=== PATIENT | male | born 2000 | race Two or more races ===

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

== ENCOUNTER 2018-01-06 13:17 | Outpatient (CLI) | payer OTHER ==
[2018-01-06] MEDS ORDERED: diphenhydrAMINE 25 MG CAP PO ONE (13:45)
[2018-01-06] MEDS ORDERED: ACETAMINOPHEN 500 MG TAB PO ONE (13:45)
== END 2018-01-06 20:17 | disposition home or self-care (01) ==
LOC: FOBOP 13:17
PROVIDERS: ATTEND Internal Medicine Hematology & Oncology
PROC: 30233N1 Transfusion of Nonautologous Red Blood Cells into Peripheral Vein, Percutaneous Approach (ICD-10-PCS; principal; 2018-01-06)
DX: C91.00 Acute lymphoblastic leukemia not having achieved remission (principal)
CPT/HCPCS: 36430; P9016; P9040; J1642

== ENCOUNTER 2018-01-07 15:47 | Inpatient (IN) | payer OTHER ==
[2018-01-07] MEDS ORDERED: oxyCODONE IR 5 MG TAB PO PRN (16:48)
[2018-01-07] MEDS ORDERED: LACTULOSE 20 GM/30 ML UDCUP PO PRN (16:52)
[2018-01-07] MEDS ORDERED: MAGNESIUM HYDROXIDE 30 ML UDCUP PO PRN (16:52)
[2018-01-07] MEDS ORDERED: POLYETHYLENE GLYCOL 3350 17 GM PKT PO PRN (16:52)
[2018-01-07] MEDS ORDERED: BISACODYL 10 MG SUPP PR PRN (16:52)
--- NOTE | 2018-01-07 17:29 | GHP ---
[f rep st] HISTORY AND PHYSICAL DATE OF ADMISSION: 01/07/2018 CHIEF COMPLAINT: Neutropenic fever, ALL. PRIMARY ONCOLOGIST: Dr. Brock. 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 He was seen at [facility] today by Dr. Lentz and is being admitted for pancytopenia and neutropenic fever. He was treated with CALGB 32993 protocol. The oral chemo was stopped on Thursday, and his last dose of IV chemotherapy was December 08. He had labs drawn 2017, with WBC 0.51, hemoglobin 5.9, hematocrit 71, and platelets 17. He was transfused 2 units of blood yesterday. He says he is feeling more perky and not as tired. He has sores on the inner aspect of his lip and mouth that are painful with swallowing or drinking liquids. He has noticed sharp rectal pain with bowel movements, the past couple days. Has been eating less to avoid having bowel movements because of the pain. He has mild nausea every morning. This is resolved at night. He has had hot flashes/sweats for the past week. Denies cough, chest pain, or shortness of breath. No dysuria or urinary frequency or urgency. He had a port placed by Dr. Burrell on 12/28/2017. Has a history of C diff in November 2017, but denies diarrhea currently. REVIEW OF SYSTEMS: I completed a 10-point review of systems, negative except as noted in the HPI. PAST MEDICAL HISTORY: 1. 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 Chemo was placed on hold this week. 2. Pancytopenia. 3. History of C diff colitis, November 2017. 4. Allergic rhinitis. 5. Asthma. 6. Depression. PAST SURGICAL HISTORY: Port placement. SOCIAL HISTORY: Lives in [place] with his mom and dad. Occasional alcohol. No tobacco or illicits. FAMILY HISTORY: Paternal grandmother with diabetes. Maternal grandmother with breast cancer and colon cancer. PHYSICAL EXAMINATION: VITAL SIGNS: Temperature 37.4 blood pressure 134/78, heart rate 115, respirations 16, 97% on room air. GENERAL: Well-appearing, pale, but no acute distress. HEENT: PERRLA, EOMI. Dry mucous membranes. Has oral ulcerations on lower lip and inner aspect of his mouth. CV: Tachy, but regular. No murmurs, gallops, or rubs. LUNGS: Clear. No crackles or wheezing. ABDOMEN: Soft, nontender, nondistended. Has striae of bilateral flanks. : No suprapubic or CVA tenderness. RECTUM: Without erythema or open ulceration. Did not perform a full rectal exam, given neutropenia. NEURO : 2 through 12 intact. PSYCH: Alert and oriented x3, very pleasant. SKIN: Warm, dry, has striae on upper extremities. LABS: WBC is 0.35, hemoglobin 7.9, hematocrit 22, platelets 17 (17 on 01/04). Absolute neutrophil 0.05. Sodium 144, potassium 4.0, chloride 104, carbon dioxide 23, anion gap 18, creatinine 0.6, glucose is 100. Total bilirubin is 5.2, conjugated 1.2, unconjugated 4. LFTs within normal. ASSESSMENT AND PLAN: 1. Neutropenic fever: Differential is broad, given significant neutropenia. Had port placed earlier this month. Blood cultures drawn in clinic. Has complained of rectal pain, especially with bowel movements. CT pending to eval for rectal abscess. Start broad abx. Infectious Disease to evaluate in the morning. 2. Acute rectal pain: We will choose oral agents given do not want to do suppositories in the setting of neutropenia. 3. B-cell acute lymphoblastic leukemia: Followed by Dr. Brock. Chemotherapy is on hold with pancytopenia 4. Depression. He is not on medications. 5. Pancytopenia: transfused 2 units RBCs yesterday. Platelets remain at 17; transfuse if <10 or bleeding 6. Mucositis: magic mouthwash 7. Hyperbilirubinemia: likely from chemo. Repeat in morning 8. Asthma: resume inhaler 9. Diet: Regular. 10. Deep venous thrombosis prophylaxis: Is ambulating. No Lovenox with thrombocytopenia. DISPOSITION: Patient warrants inpatient admission given acute neutropenic fever , rectal pain, warranting IV antibiotics and Infectious Disease consultation. /[id number]/MODL MTDD
--- NOTE | 2018-01-07 17:34 | GCON ---
[f rep st] CONSULTATION HISTORY OF PRESENT ILLNESS: The patient is a very pleasant 17-year-old gentleman who was diagnosed with a B-cell ALL, Willow chromosome negative , in April of 2017. He presented with widespread osseous metastasis and diagnosis was made on a bone marrow biopsy. He was started on CALGB protocol and went into complete remission that was MRD negative. He has completed cycles 1, 2, and 3 and is currently on cycle 4, which is the delayed intensification therapy. He has recently had significant pancytopenia and as of 3 days ago, all of his chemotherapy drugs were stopped. He presents today with a 3-4 day history of rectal pain, feeling poorly, and a temperature of 99.7. Because of significant pancytopenia, he is admitted for IV antibiotics and monitoring. In addition to the rectal pain, he also complains of significant stomatitis. He has generally been healthy except for exercise- induced asthma. There is a history of breast cancer and colon cancer in a maternal great-grandmother. He is accompanied by his parents. REVIEW OF SYSTEMS: Otherwise negative except as discussed above. PHYSICAL EXAMINATION: VITAL SIGNS: Today, blood pressure is 124/84. Pulse is 128. O2 saturation is 98%. Temperature is 99.7. He could be slightly icteric. Chemistry panel is pending. MOUTH: Shows evidence of stomatitis, particularly on the tip of his tongue. LYMPH: I detect no cervical, supraclavicular, or axillary adenopathy. LUNGS: Clear to auscultation and percussion. CARDIAC: S1, S2 without murmurs, clicks, or added sounds. ABDOMEN : Shows normal bowel sounds and is nontender. EXTREMITIES: Show no edema. NEUROLOGIC: Nonfocal. PERIRECTAL: Exam was done by Alpa Solano, nurse practitioner, and she reports that he is extremely tender in the rectal area, but no fluctuance is noted. LABORATORY DATA: His current white count is 0.35 with an ANC of 0.05, hemoglobin 7.9, hematocrit 22.2, and platelets are 17,000. IMPRESSION: Patient with an acute lymphocytic leukemia on course for delayed intensification chemotherapy. He has significant pancytopenia. 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 I am concerned he probably has an anal fissure, which of course should be treated conservatively, but given the extreme cytopenia and fever, I think it would probably be best to admit him for coverage. I should note that he had a recent bout of Clostridium difficile enterocolitis, and I would probably place him on p.o. vancomycin prophylactically. I should also note that he had a recent PICC line removed and a port placed by Dr. Burrell. It looks fine on examination today, but we will draw blood cultures, both peripherally and from his port. I think early infectious disease consultation may be indicated. /[id number]/MODL MTDD
[2018-01-07] MEDS: MBX SOLN 30 ML BOTTLE PO PRN ×2 (17:48→20:25)
[2018-01-07] MEDS: CEFEPIME HCL 2 GM in STERILE WATER INJ 12.5 ML IV SCH ×2 (17:49→23:58)
[2018-01-07] MEDS: NS 1,000 ML IV SCH (17:49)
[2018-01-07] MEDS: metroNIDAZOLE 500 MG TAB PO SCH ×2 (17:49→23:58)
[2018-01-07] MEDS ORDERED: IOPAMIDOL (ISOVUE-300) 100 ML BTL ONE (19:28)
[2018-01-07] MEDS: VANCOMYCIN 1.25 GM in NS 250 ML IV SCH (20:24)
[2018-01-07] MEDS: SENNOSIDES/DOCUSATE SODIUM TAB PO SCH (21:20)
[2018-01-07] MEDS: ACETAMINOPHEN 325 MG TAB PO PRN (22:10)
[2018-01-07] MEDS ORDERED: PROMETHAZINE HCL 25 MG/ML INJ IVP PRN (22:49)
[2018-01-08] MEDS: metroNIDAZOLE 500 MG TAB PO SCH ×2 (03:09→13:50)
[2018-01-08] MEDS: CEFEPIME HCL 2 GM in STERILE WATER INJ 12.5 ML IV SCH ×2 (04:40→13:51)
[2018-01-08] MEDS: NS 1,000 ML IV SCH ×2 (04:40→21:50)
[2018-01-08 06:00] LABS: PLATELET COUNT 12 10^3/uL (150-400)
[2018-01-08] MEDS: VANCOMYCIN 1.25 GM in NS 250 ML IV SCH (06:27)
[2018-01-08] MEDS ORDERED: LORazepam 1 MG TAB PO PRN (08:50)
[2018-01-08] MEDS ORDERED: NON-FORMULARY NEW DRUG (Omeprazole [Omeprazole] 20 MG) PO SCH (09:00)
[2018-01-08] MEDS ORDERED: Herbals/Supplements -Info Only PO SCH (09:00)
[2018-01-08] MEDS: SENNOSIDES/DOCUSATE SODIUM TAB PO SCH ×2 (10:03→21:29)
[2018-01-08] MEDS: PANTOPRAZOLE SODIUM 40 MG TAB PO SCH (10:04)
[2018-01-08] MEDS: ONDANSETRON 4 MG/2 ML VIAL IVP PRN (10:45)
--- NOTE | 2018-01-08 11:03 | PDMN ---
Medical Necessity Medical necessity: Patient meets inpatient criteria per physician note and [facility] Hematology [facility] (neutropenic fever/pancytopenia after chemotherapy for B-cell ALL with widespread osseous mets; chemo on hold; received 2 units PRBC's prior to admission; ongoing tachycardia to 110's after initial treatment/rehydration; new rectal pain/poss anal fissure; anticipated LOS > 2 midnights for ongoing IV antibiotics, ID consult, possible additional transfusions.)
--- NOTE | 2018-01-08 11:47 | SOAPPROG ---
SOAP Progress Note Assessment/Plan: Assessment: 1. ALL 2. Pancytopenia 3. Fever 4.Diarrhea, could have some component neutropenic colitis based on ct scan 5. Anal pain Plan:Continue antibiotics, ID consult pending, Txn PRBC's today 01/08/18 11:43 01/08/18 11:48 Subjective: feels sweaty, some nausea, one episode emesis Objective: Vital Signs Temp Pulse Resp BP Pulse Ox 98.4 F 115 H 17 132/84 H 98 01/08/18 11:28 01/08/18 09:57 01/08/18 09:57 01/08/18 09:57 01/08/18 09:57 Laboratory Results 01/08/18 05:40 01/08/18 08:00 01/07/18 01/08/18 01/09/18 05:59 05:59 05:59 Intake Total [address] shows some thickening caecum and sigmoid colon Physical Exam - Physical Exam General Appearance: mild distress Respiratory: lungs clear, normal breath sounds Cardiac/Chest: regular rate, rhythm Abdomen: normal bowel sounds, non-tender ICD10 Worksheet Patient Problems: Problems Problem Status Onset Anemia Acute Hypotension Acute Thrombocytopenia Acute
[2018-01-08] MEDS ORDERED: LIDOCAINE 2% JELLY 5 ML TUBE TP PRN (11:51)
--- NOTE | 2018-01-08 12:06 | ASMTCMCOM ---
CM Note CM Note Notes: Pt. is a 17-year-old man admitted for a fever and rectal pain. Pt. with B cell ALL diagnosed in April,. Hx. of Cdiff, pancytopenia, asthma, and depression. Pt's oncologist is Dr. Allen Brock. Dr. Lentz involved for admission to [facility]. ID is consulted. Pt. currently on IV antibiotics. Need to assess for home IVs going forward. No PT or OT ordered. Anticipate independent d/c to his parents, Zenaida and Parker when ready. Lives w/ parents in [place]. Consulted w/ bedside RN who agrees that Pt. likely to be independent at d/c. RN states depression does not seem to be a primary issue at this time. CM to follow for d/c POC. Date Signed: 01/08/2018 12:05 PM Electronically Signed By:Nanette Burnett LCSW
[2018-01-08] MEDS ORDERED: diphenhydrAMINE 25 MG CAP PO ONE (12:30)
[2018-01-08] MEDS: ACETAMINOPHEN 325 MG TAB PO PRN (15:01)
--- NOTE | 2018-01-08 15:56 | HOSPPROG ---
Hospitalist Progress Note Assessment/Plan: Assessment: 17-year-old male presents with acute neutropenic fever secondary to C diff colitis in the setting ALL and pancytopenia Plan: 1. Neutropenic fever. Acute, total white cell count remains less than 300, patient afebrile overnight, most likely secondary to C diff colitis -status post cefepime, metronidazole, vancomycin, discontinue these medications and target therapy to C diff colitis -no evidence of perirectal fistula or abscess on physical exam, continue monitor 2. C diff colitis. Evidenced by positive PCR, cecal thickening on abdominal CT imaging in the setting of neutropenia (personally interpreted), resulting in fever and diarrhea -day 1 of vancomycin 125 4 times daily -appreciate ongoing infectious disease consultation, discussed with Dr. Yobani Perez, he agrees with targeting therapy at this time 3. Hyperbilirubinemia. Most likely secondary to acute illness, continue monitor 4. Pancytopenia secondary to chemotherapy. Continue monitor CBC daily, transfuse 2 units packed red blood cells today, hold on platelet transfusion unless patient demonstrates bloody stool 5. ALL. Actively receiving chemotherapy, appreciate ongoing oncology consultation, physically rounded with patient, family, Dr. Alivia Lentz today Diet. Regular Prophylaxis. High risk patient, SCDs, holding pharm given pancytopenia Code. Full Disposition. Anticipated discharge is uncertain this time, patient remains ill with neutropenia and infection. High-level medical complexity, high risk of worsening morbidity and/or mortality secondary to the issues as outlined above. Subjective: Reports ongoing linda rectal pain with bowel movements Objective: Vital Signs Temp Pulse Resp BP Pulse Ox 36.9 C 112 H 17 122/78 H 99 01/08/18 15:30 01/08/18 15:30 01/08/18 15:30 01/08/18 15:30 01/08/18 15:30 Microbiology 01/08/18 12:30 Gastrointestinal Tract Panel (PCR) - Final Stool Clostridium Difficile Detected Laboratory Results 01/08/18 05:40 01/08/18 08:00 01/07/18 01/08/18 01/09/18 05:59 05:59 05:59 Intake Total 1850 Balance 1850 - Physical Exam Constitutional: no apparent distress, appears nourished, not in pain, No uncomfortable Cardiovascular: regular rate and rhythym, no murmur, rub, or gallop, No edema Respiratory: no respiratory distress, no rales or rhonchi, clear to auscultation Gastrointestinal: normoactive bowel sounds, soft, non-tender abdomen, no palpable masses, No distension Genitourinary: other (No perirectal fissure) Skin: other (Mild firm skin in the perirectal area without overt induration, no erythema, no tenderness, no evidence of abscess) Neurologic: AAOx3, sensation intact bilaterally, No weakness Psychiatric: interacting appropriately, not anxious, not encephalopathic, thought process linear ICD10 Worksheet Patient Problems: Problems Problem Status Onset Thrombocytopenia Acute Anemia Acute Hypotension Acute
[2018-01-08] MEDS: VANCOMYCIN 125 MG/2.5 ML UDL PO SCH ×2 (16:18→21:29)
--- NOTE | 2018-01-08 20:38 | GCON ---
[f rep st] CONSULTATION INPATIENT INFECTIOUS DISEASE CONSULTATION. REFERRING PHYSICIAN: Misty Schmitt MD REASON FOR REFERRAL: Neutropenic fever. HISTORY OF PRESENT ILLNESS: Patient is a 17-year-old male who was diagnosed in April of last year wit h B-cell acute lymphocytic leukemia. The patient was admitted on 01/07/2018 through the [facility] for pancytopenia and neutropenic fever. Patient notes over the last couple of days before admission he had subjective hot flashes and chills. He was having increased mucosal sores in his mouth and some pain with bowel movements. The patient had labs checked on 01/04 and was found to have a white cell count of 0.51. His hemoglobin was 5.9 and his platelet count was 17 at that point . The patient denies any other symptoms of significance. No urinary symptoms. No respiratory sympt oms. No sores. Patient recently had a port placed in his right upper chest, which is causing him no discomfort and he has noted no redness or drainage from the area. The patient was admitted and star anirudh on vancomycin and cefepime. He has had no measured temperature elevations since admission. PAST MEDICAL HISTORY: 1. B-cell acute lymphocytic leukemia. 2. History of C difficile colitis. 3. Allergic rhinitis. 4. Asthma. 5. Depression. PAST SURGICAL HISTORY: Status post port placement. ANTIBIOTICS: 1. Vancomycin. 2. Cefepime. ALLERGIES: The patient has no known drug allergies. SOCIAL HISTORY: The patient lives with his mom and dad in [place], [place]. Occasional alcohol use. No tobacco use. No other illicit drug use. FAMILY HISTORY: Reviewed but noncontributory. REVIEW OF SYSTEMS: Other than that detailed in above in history of present illness, comprehensive 10 -system review is negative. PHYSICAL EXAMINATION: VITAL SIGNS: Temperature maximum 37.4, temperature current 36.9; heart rate i s 112; respiratory rate is 17; blood pressure is 122/78. GENERAL: Well-formed, well-nourished male. In no acute distress. He is not toxic in appearance. He is alert and oriented x3. He has a pleas ant demeanor. HEENT: Normocephalic for age. Atraumatic. No scleral icterus. No oral lesion. No drainage from the nares. Eyes: Lids and conjunctivae are within normal limits. Pupils are equal an d round bilaterally. NECK: Supple. No meningismus. LUNGS: Clear to auscultation bilaterally, wit h good effort. HEART: Regular rhythm but tachycardic. No murmur, rub, or gallop noted. No signifi cant peripheral edema. ABDOMEN: Soft. Mildly tender with deep palpation in a diffuse manner. No m asses. SKIN: Warm and dry to the touch. No rashes or lesions seen. Most notably, port site in the right upper chest without erythema or mass or drainage. MUSCULOSKELETAL: No other muscle belly ten derness is noted. No joint line effusion or arthritis seen. NEURO: Cranial nerves 2-12 seem to be intact. Peripheral sensation seems intact in extremities. LABORATORY DATA: Patient has a CBC dated 01/08/2018, shows a white blood cell count of 0.30, hemoglo bin of 6.2, hematocrit of 17.6, and a platelet count of 12. Differential shows 5% segmented neutroph ils, 2% band forms, 75% lymphocytes. Serum chemistries on 01/08/2018 show a sodium of 146, potassium of 4.1, chloride of 109, bicarbonate of 20, BUN of 16, creatinine of 0.5. AST is 19. ALT is 53. MICROBIOLOGIC DATA: Patient has blood cultures dated 01/07/2018 which show no growth to date. Gastr ointestinal tract panel PCR of his stool from 01/08/2018 shows detectable Clostridium difficile. ASSESSMENT: Neutropenic fever. No localizing issues. Abdominal and pelvic CT scan did not show any thing significant. The patient does have detectable C difficile present in the stool. Unclear if th is is colonization or overgrowth resulting in colitis. Given lack of significant diarrhea, I suspect the former. Nevertheless, I think given his neutropenic state, using oral vancomycin in treatment d ose is reasonable at this point. PLAN: 1. Continue both IV vancomycin and cefepime. If no gram positives appear in blood culture, I may di scontinue vancomycin in a couple of days. 2. Start oral vancomycin 125 mg p.o. q.i.d. 3. Follow clinical course as well as blood cultures and white blood cell count. /[id number]/MODL
[2018-01-08] MEDS: MBX SOLN 30 ML BOTTLE PO PRN (21:49)
[2018-01-09] MEDS: ONDANSETRON 4 MG/2 ML VIAL IVP PRN ×2 (01:45→10:36)
[2018-01-09] MEDS: VANCOMYCIN 125 MG/2.5 ML UDL PO SCH ×4 (04:51→20:35)
[2018-01-09] MEDS: NS 1,000 ML IV SCH (04:51)
[2018-01-09 05:19] LABS: PLATELET COUNT 12 10^3/uL (150-400)
--- NOTE | 2018-01-09 08:08 | SOAPPROG ---
SOAP Progress Note Assessment/Plan: Assessment: 1) ALL (in remission and on maintenence therapy 2) Neutropenic fever 3) Pancytopenia 4) Clostridium Difficile colitis versus colonization 5) Elevated bilirubin (unclear etiology) 6) Rectal fissure Plan: Gagandeep is doing better. His fevers have resolved. Will continue current Abx. Stool positive for C. Diff. Unclear if active infection as he is not symptomatic. Will continue oral Vancomycin for now. Appreciate ID input. No indication for transfusion today. Unclear why his bilirubin is elevated. CT abd showed unremarkable liver with normal biliary system. Now trending down, Continue to monitor. Await recovery of WBC count. Plan d/w patient, family and nursing. 01/09/18 07:58 01/09/18 08:14 Subjective: Feels better. Rectal pain improved. Denies N/V, diarrhea, belly pain, cough. Parents at bedside Objective: Vital Signs Temp Pulse Resp BP Pulse Ox 36.8 C 86 16 128/74 H 98 01/09/18 04:00 01/09/18 04:00 01/09/18 04:00 01/09/18 04:00 01/09/18 04:00 Microbiology 01/08/18 12:30 Gastrointestinal Tract Panel (PCR) - Final Stool Clostridium Difficile Detected Laboratory Results 01/09/18 04:45 01/09/18 04:45 01/08/18 01/09/18 01/10/18 05:59 05:59 05:59 Intake Total 1850 2730.5 Output Total 502 Balance 1850 2228.5 - Time Spent With Patient Time Spent With Patient: 25 minutes Physical Exam - Physical Exam General Appearance: alert, no apparent distress EENT: PERRL/EOMI, other (No icterus) Respiratory: lungs clear Cardiac/Chest: regular rate, rhythm Abdomen: non-tender, soft, other (No right upper quadrant tenderness) Skin: normal color Neuro/Psych: normal mood/affect, oriented x 3 ICD10 Worksheet Patient Problems: Problems Problem Status Onset Anemia Acute Hypotension Acute Thrombocytopenia Acute
[2018-01-09] MEDS ORDERED: VANCOMYCIN HCL/NORMAL SALINE 250 ML IV SCH (09:00)
--- NOTE | 2018-01-09 09:26 | PCMIDPN ---
Assessment/Plan: Assessment: Neutropenia with subjective fevers. No objective fevers found during his stay so far. Covered with cefepime and vancomycin empirically. Nothing in his blood cultures. No Gram-positive cocci concerns at present. Will discontinue the IV vancomycin. Patient did test positive for C difficile in his stool sample. This may be colonization alone as the patient does not have significant gastrointestinal symptoms. However his symptoms may be suppressed secondary to neutropenia. We will continue his oral vancomycin treatment. Continue empiric cefepime. Plan: 1. Continue IV cefepime. 2. Discontinue IV vancomycin. 3. Continue oral vancomycin C difficile therapy. 4. Follow counts. 01/09/18 10:52 Subjective: Patient is resting in his hospital bed. He states he feels pretty well this morning. Had a singular episode of feeling flushed and hot overnight. Temperature was taken and he was not febrile. Objective: Cefepime # 2 vancomycin IV # 2 vancomycin p.o. # 1 Vital Signs Temp Pulse Resp BP Pulse Ox 37.1 C 75 16 117/66 95 01/09/18 08:00 01/09/18 08:00 01/09/18 08:00 01/09/18 08:00 01/09/18 08:00 Microbiology 01/08/18 12:30 Gastrointestinal Tract Panel (PCR) - Final Stool Clostridium Difficile Detected Laboratory Results 01/09/18 04:45 01/09/18 04:45 01/08/18 01/09/18 01/10/18 05:59 05:59 05:59 Intake Total 1850 2730.5 Output Total 502 Balance 1850 2228.5 - Physical Exam General Appearance: WD/WN, alert, no apparent distress, non-toxic Respiratory: lungs clear, normal breath sounds, No respiratory distress Cardiac/Chest: regular rate, rhythm, No tachycardia Skin: normal color, warm/dry, No rash Neuro/Psych: alert, normal mood/affect, oriented x 3 ICD10 Worksheet Patient Problems: Problems Problem Status Onset Anemia Acute Hypotension Acute Thrombocytopenia Acute
[2018-01-09] MEDS: SENNOSIDES/DOCUSATE SODIUM TAB PO SCH ×2 (09:46→20:36)
[2018-01-09] MEDS: PANTOPRAZOLE SODIUM 40 MG TAB PO SCH (10:36)
[2018-01-09] MEDS: CEFEPIME HCL 2 GM in STERILE WATER INJ 12.5 ML IV SCH ×3 (10:36→20:35)
--- NOTE | 2018-01-09 15:57 | HOSPPROG ---
Hospitalist Progress Note Assessment/Plan: Assessment: 17-year-old male presents with acute neutropenic fever possibly secondary to C diff colitis in the setting ALL and pancytopenia Plan: 1. Neutropenic fever. Acute, total white cell count remains less than 400, patient afebrile overnight, either GNR or cdiff -cont IV cefepime, DC IV vanco per Dr. Perez, cont PO vanco -no evidence of perirectal fistula or abscess on physical exam, continue monitor 2. C diff colitis. Evidenced by positive PCR, cecal thickening on abdominal CT imaging in the setting of neutropenia (personally interpreted), resulting in fever and diarrhea -day 2 of vancomycin 125 4 times daily -appreciate ongoing infectious disease consultation, discussed with Dr. Yobani Perez, he agrees with targeting therapy at this time 3. Hyperbilirubinemia. Most likely secondary to acute illness, continue monitor 4. Pancytopenia secondary to chemotherapy. Continue monitor CBC daily, transfused 2 units packed red blood cells, hold on platelet transfusion unless patient demonstrates bloody stool -if he has another dark BM, patient asked to have nurse eval and send OB 5. ALL. Actively receiving chemotherapy, appreciate ongoing oncology consultation Diet. Regular Prophylaxis. High risk patient, SCDs, holding pharm given pancytopenia Code. Full Disposition. Anticipated discharge is uncertain this time, patient remains ill with neutropenia and infection. Subjective: no abd pain, lidocaine jelly improving linda-rectal discomfort Objective: Vital Signs Temp Pulse Resp BP Pulse Ox 37.0 C 83 16 123/74 H 96 01/09/18 12:00 01/09/18 12:00 01/09/18 12:00 01/09/18 12:00 01/09/18 12:00 Microbiology 01/08/18 12:30 Gastrointestinal Tract Panel (PCR) - Final Stool Clostridium Difficile Detected Laboratory Results 01/09/18 04:45 01/09/18 04:45 01/08/18 01/09/18 01/10/18 05:59 05:59 05:59 Intake Total 1850 2730.5 Output Total 502 450 Balance 1850 2228.5 -450 - Physical Exam Constitutional: no apparent distress, appears nourished, not in pain, No uncomfortable Cardiovascular: regular rate and rhythym, no murmur, rub, or gallop, No edema Respiratory: no respiratory distress, no rales or rhonchi, clear to auscultation Gastrointestinal: normoactive bowel sounds, soft, non-tender abdomen, no palpable masses, No distension Genitourinary: other (no linda-rectal fissure) Skin: other (firm but non-tender skin adjacent to rectum, some irritation anteriorly, no erythema/induration at PORT) Neurologic: AAOx3 Psychiatric: interacting appropriately, not anxious, not encephalopathic, thought process linear ICD10 Worksheet Patient Problems: Problems Problem Status Onset Thrombocytopenia Acute Anemia Acute Hypotension Acute
[2018-01-09] MEDS: ONDANSETRON DISINTEGRATING 4 MG TAB PO PRN ×2 (16:29→20:36)
[2018-01-10] MEDS: MBX SOLN 30 ML BOTTLE PO PRN ×2 (02:39→21:01)
[2018-01-10] MEDS: ONDANSETRON 4 MG/2 ML VIAL IVP PRN (02:39)
[2018-01-10] MEDS: D5W 1/2 NS W/ 20 KCl/L 1,000 ML IV SCH ×2 (02:40→21:01)
[2018-01-10] MEDS: VANCOMYCIN 125 MG/2.5 ML UDL PO SCH ×4 (05:48→21:04)
[2018-01-10] MEDS: CEFEPIME HCL 2 GM in STERILE WATER INJ 12.5 ML IV SCH ×3 (05:49→21:04)
[2018-01-10 06:12] LABS: PLATELET COUNT 13 10^3/uL (150-400)
--- NOTE | 2018-01-10 09:51 | PCMIDPN ---
Assessment/Plan: Assessment: Neutropenia with subjective fevers. No objective fevers found during his stay so far. Covered with cefepime monotherapy currently. Nothing coming up in his blood cultures. Patient did test positive for C difficile in his stool sample. This may be colonization alone as the patient does not have significant gastrointestinal symptoms. However his symptoms may be suppressed secondary to neutropenia. We will continue his oral vancomycin treatment. Continue empiric cefepime. Plan: 1. Continue IV cefepime. 2. Continue oral vancomycin C difficile therapy. 3. Follow counts. Subjective: Patient is resting comfortably in his hospital bed. He denies any subjective fevers or chills. He states that his appetite energy are improved over yesterday. Objective: Cefepime # 3 Vital Signs Temp Pulse Resp BP Pulse Ox 36.6 C 85 14 130/76 H 96 01/10/18 05:45 01/10/18 05:45 01/10/18 05:45 01/10/18 05:45 01/10/18 05:45 Laboratory Results 01/10/18 05:40 01/10/18 05:40 01/09/18 01/10/18 01/11/18 05:59 05:59 05:59 Intake Total 2730.5 3140 Output Total 502 1900 Balance 2228.5 1240 - Physical Exam General Appearance: WD/WN, alert, no apparent distress, non-toxic Respiratory: lungs clear, normal breath sounds, No respiratory distress Cardiac/Chest: regular rate, rhythm, No tachycardia Extremities: non-tender, normal inspection Skin: normal color, warm/dry, No rash Neuro/Psych: alert, normal mood/affect, oriented x 3 ICD10 Worksheet Patient Problems: Problems Problem Status Onset Anemia Acute Hypotension Acute Thrombocytopenia Acute
[2018-01-10] MEDS: ONDANSETRON DISINTEGRATING 4 MG TAB PO PRN ×2 (10:33→14:40)
[2018-01-10] MEDS: PANTOPRAZOLE SODIUM 40 MG TAB PO SCH (10:33)
[2018-01-10] MEDS: SENNOSIDES/DOCUSATE SODIUM TAB PO SCH ×2 (10:41→23:21)
--- NOTE | 2018-01-10 12:09 | SOAPPROG ---
SOAP Progress Note Assessment/Plan: Assessment: 1) ALL (in remission and on maintenence therapy 2) Neutropenic fever (resolved) 3) Pancytopenia 4) Clostridium Difficile colonization 5) Elevated bilirubin (unclear etiology)--improving 6) Rectal fissure Plan: Gagandeep is doing better. His fevers have resolved. His IV Vancomycin was stopped yesterday. He continues on IV Cefepime. Stool positive for C. Diff. Unclear if active infection as he is not symptomatic. Will continue oral Vancomycin for now. Appreciate ID input. No indication for transfusion today. Platelets stable. Unclear why his bilirubin is elevated. CT abd showed unremarkable liver with normal biliary system. Continues trending down, Continue to monitor. Await recovery of WBC count. If he is stable tomorrow, I think that he could potentially be discharged on ora Vancomycin , and an oral abx with close outpatient clinic follow up. Plan d/w patient, family. 01/10/18 12:09 Subjective: Feels well. No fevers. No abd pain or diarrhea. Mother at bedside Objective: Vital Signs Temp Pulse Resp BP Pulse Ox 36.8 C 74 16 126/82 H 98 01/10/18 10:51 01/10/18 10:51 01/10/18 10:51 01/10/18 10:51 01/10/18 10:51 Laboratory Results 01/10/18 05:40 01/10/18 05:40 01/09/18 01/10/18 01/11/18 05:59 05:59 05:59 Intake Total 2730.5 3140 Output Total 502 1900 Balance 2228.5 1240 - Time Spent With Patient Time Spent With Patient: 25 minutes Physical Exam - Physical Exam General Appearance: alert, no apparent distress EENT: PERRL/EOMI Abdomen: non-tender, soft Skin: normal color Neuro/Psych: alert, normal mood/affect, oriented x 3 ICD10 Worksheet Patient Problems: Problems Problem Status Onset Anemia Acute Hypotension Acute Thrombocytopenia Acute
--- NOTE | 2018-01-10 13:32 | ASMTCMCOM ---
CM Note CM Note Notes: Chart reviewed. Patient is stabilizing on IV antibiotics. Likely to dc home independently tomorrow. No needs Identified CM available should needs arise. Date Signed: 01/10/2018 01:31 PM Electronically Signed By:Stella Sotelo RN
--- NOTE | 2018-01-10 13:40 | HOSPPROG ---
Hospitalist Progress Note Assessment/Plan: Assessment: 17-year-old male presents with acute neutropenic fever possibly secondary to C diff colitis in the setting ALL and pancytopenia Plan: 1. Neutropenic fever. Acute, total white cell count remains less than 400, patient afebrile overnight, either GNR or cdiff -cont IV cefepime, DC IV vanco per Dr. Perez, cont PO vanco -no evidence of perirectal fistula or abscess on physical exam, continue monitor 2. C diff colitis. Evidenced by positive PCR, cecal thickening on abdominal CT imaging in the setting of neutropenia (personally interpreted), resulting in fever and diarrhea -day 2 of vancomycin 125 4 times daily -appreciate ongoing infectious disease consultation, discussed with Dr. Yobani Perez, he agrees with targeting therapy at this time 3. Hyperbilirubinemia. Most likely secondary to acute illness, continue monitor 4. Pancytopenia secondary to chemotherapy. Continue monitor CBC daily, transfused 2 units packed red blood cells, hold on platelet transfusion unless patient demonstrates bloody stool -if he has another dark BM, patient asked to have nurse eval and send OB 5. ALL. Actively receiving chemotherapy, appreciate ongoing oncology consultation Diet. Regular Prophylaxis. High risk patient, SCDs, holding pharm given pancytopenia Code. Full Disposition. Anticipated discharge is uncertain this time, patient remains ill with neutropenia and infection. Subjective: perirectal pain better controlled w/ lidocaine, normal appearance to BMs Objective: Vital Signs Temp Pulse Resp BP Pulse Ox 36.8 C 86 18 124/82 H 96 01/10/18 12:58 01/10/18 12:58 01/10/18 12:58 01/10/18 12:58 01/10/18 12:58 Laboratory Results 01/10/18 05:40 01/10/18 05:40 01/09/18 01/10/18 01/11/18 05:59 05:59 05:59 Intake Total 2730.5 3140 Output Total 502 1900 Balance 2228.5 1240 - Physical Exam Constitutional: no apparent distress, appears nourished, not in pain, No uncomfortable Ears, Nose, Mouth, Throat: moist mucous membranes, hearing normal, ears appear normal, no oral mucosal ulcers Cardiovascular: regular rate and rhythym, no murmur, rub, or gallop, No edema Respiratory: no respiratory distress, no rales or rhonchi, clear to auscultation Gastrointestinal: normoactive bowel sounds, soft, non-tender abdomen, no palpable masses, No distension Skin: other (noertyhema/tenderness/induration/or any other lesions at port site) Neurologic: AAOx3 Psychiatric: interacting appropriately, not anxious, not encephalopathic, thought process linear ICD10 Worksheet Patient Problems: Problems Problem Status Onset Thrombocytopenia Acute Anemia Acute Hypotension Acute
[2018-01-11] MEDS: CEFEPIME HCL 2 GM in STERILE WATER INJ 12.5 ML IV SCH ×2 (05:45→14:00)
[2018-01-11] MEDS: VANCOMYCIN 125 MG/2.5 ML UDL PO SCH ×2 (05:45→14:00)
[2018-01-11 06:25] LABS: PLATELET COUNT 16 10^3/uL (150-400)
[2018-01-11 08:43] VITALS: RESP 16; TEMP 98.2
--- NOTE | 2018-01-11 09:22 | PCMIDPN ---
Assessment/Plan: Assessment: Neutropenia with subjective fevers. No objective fevers found during his stay so far. Covered with cefepime monotherapy currently. Nothing coming up in his blood cultures. Patient did test positive for C difficile in his stool sample. This may be colonization alone as the patient does not have significant gastrointestinal symptoms. However his symptoms may be suppressed secondary to neutropenia. We will continue his oral vancomycin treatment. Continue empiric cefepime. If patient is to be discharged would be comfortable switching his cefepime to oral Levaquin. Plan: 1. Continue IV cefepime. 2. Continue oral vancomycin C difficile therapy. 3. Follow counts. 01/11/18 09:20 Subjective: Patient woke up this been feeling very well. States he had a good appetite yesterday. Has no complaints. No subjective fevers. No new pains or rash. Objective: Cefepime # 4 Oral vancomycin # 3 Vital Signs Temp Pulse Resp BP Pulse Ox 36.8 C 80 16 124/80 H 99 01/11/18 08:35 01/11/18 08:35 01/11/18 08:35 01/11/18 08:35 01/11/18 08:35 Laboratory Results 01/11/18 05:50 01/11/18 05:50 01/10/18 01/11/18 01/12/18 05:59 05:59 05:59 Intake Total 3140 1300 600 Output Total 1900 450 550 Balance 1240 850 50 - Physical Exam General Appearance: WD/WN, alert, no apparent distress, non-toxic Respiratory: lungs clear, normal breath sounds, No respiratory distress Cardiac/Chest: regular rate, rhythm, No tachycardia Skin: normal color, warm/dry, No rash Neuro/Psych: alert, normal mood/affect, oriented x 3 ICD10 Worksheet Patient Problems: Problems Problem Status Onset Anemia Acute Hypotension Acute Thrombocytopenia Acute
[2018-01-11] MEDS: PANTOPRAZOLE SODIUM 40 MG TAB PO SCH (10:22)
[2018-01-11] MEDS: SENNOSIDES/DOCUSATE SODIUM TAB PO SCH (10:22)
--- NOTE | 2018-01-11 11:11 | SOAPPROG ---
SOAP Progress Note Assessment/Plan: Assessment: Assessment: 1) ALL (in remission and on maintenence therapy 2) Neutropenic fever (resolved) 3) Pancytopenia - WBC 0.4, plts 16k. 4) Clostridium Difficile colonization 5) Elevated bilirubin (unclear etiology)--relatively stable at 2.0 6) Rectal fissure - not currently an issue Plan: Gagandeep is stable clinically. He does not need txn today. He is afebrile. I think he can be discharged to home on Levaquin 500mg/day as prophylaxis. Stool positive for C. Diff. Unclear if active infection as he is not symptomatic. Will continue oral Vancomycin for now. Appreciate ID input. Unclear why his bilirubin is elevated. CT abd showed unremarkable liver with normal biliary system. Continue to monitor. Await recovery of WBC count. I think he can be discharged today with close outpatient follow up on oral vancomycin and prophylactic Levaquin. Subjective: Had formed stool. Feels ready to go home Objective: Vital Signs Temp Pulse Resp BP Pulse Ox 36.8 C 80 16 124/80 H 99 01/11/18 08:35 01/11/18 08:35 01/11/18 08:35 01/11/18 08:35 01/11/18 08:35 Laboratory Results 01/11/18 05:50 01/11/18 05:50 01/09/18 01/10/18 01/11/18 23:59 23:59 23:59 Intake Total 2193 3215 700 Output Total 1202 1200 1000 Balance 991 2015 -300 Physical Exam - Physical Exam General Appearance: WD/WN, alert, no apparent distress Respiratory: lungs clear Cardiac/Chest: regular rate, rhythm Abdomen: normal bowel sounds Skin: warm/dry, pallor Neuro/Psych: alert, normal mood/affect, oriented x 3 ICD10 Worksheet Patient Problems: Problems Problem Status Onset Anemia Acute Hypotension Acute Thrombocytopenia Acute
--- NOTE | 2018-01-11 14:23 | PDDCSUM ---
Discharge Summary Discharge Summary: DISCHARGE SUMMARY FOLLOW-UP ITEMS: Repeat CBC with differential on 01/13/2018 DATE OF ADMISSION: 01/07/2018 DATE OF DISCHARGE: 01/11/2018 DISCHARGE DIAGNOSES: 1. Acute neutropenic fever 2. Possible C diff diarrhea 3. Acute hyperbilirubinemia 4. Pancytopenia secondary to chemotherapy 5. ALL CONSULTATIONS: Oncology, Infectious Disease PROCEDURES / IMAGING: CT of the abdomen demonstrating some cecal thickening but no evidence of perirectal abscess formation or fistula CHIEF COMPLAINT: Acute fever SUBJECTIVE: Patient is feeling well at time discharge, he has been afebrile for at least 48 hr, his diarrhea has resolved PHYSICAL EXAM ON DISCHARGE: Systolic blood pressure is 110/120, heart rate 80-100, satting on room air, alert awake oriented x3, abdomen is soft nontender nondistended, chest port site is non erythematous, there is no evidence fissuring or perirectal abscess, skin is nontender perirectally LABS ON DISCHARGE: Total white blood cell count 400, hemoglobin 8.7, platelets 90891, creatinine 0.6, serum sodium 146, total bilirubin 2 HOSPITAL COURSE BY PROBLEM: The patient presented with acute neutropenic fever comma in the setting of severe neutropenia with a total white blood cell count of less than 400. He was initially stabilized with IV vancomycin and cefepime, and he also had a GI PCR test which was positive for C diff. The patient had been experiencing diarrhea prior to presentation and given that his abdominal CT demonstrated some cecal thickening, the decision was made to treat the patient for possible C diff diarrhea as well as empiric protection for gram-negative rods with ongoing use of cefepime. His vancomycin was discontinued and he did not spike any further fevers. Given that his total white blood cell count remains on 400 and he is severely neutropenic, the decision was made with Infectious Disease to discharge him on oral levofloxacin with twice daily prophylactic dosing of oral vancomycin, with duration to continue until the patient is no longer neutropenic. Consequently, I have prescribed him with 14 days of treatment and he will have follow up with Dr. Allen Brock in the interim. The patient also was experiencing perirectal discomfort and although the patient does not have any evidence of perirectal fissuring or abscess formation, it is certainly possible that he is experiencing some skin irritation perirectally or some internal hemorrhoids and a stool softener has been advised to reduce any additional pressure on the rectal area. During his hospitalization, the patient did receive blood transfusion for his pancytopenia secondary to chemotherapy. He did not require platelet transfusion, as he had no evidence of bleeding in his platelets remained above 10,000. He did have some hyperbilirubinemia which is most likely secondary to acute illness and not disability representative of biliary dysfunction. DISCHARGE MEDICATIONS: Please see official discharge medication reconciliation sheet in chart , vancomycin 125 mg twice daily while on levofloxacin and neutropenic, levofloxacin 750 mg once daily, Senokot S1 tab twice daily, as needed topical lidocaine or preparation H perirectally. DISCHARGE INSTRUCTIONS: Please follow up with Dr. Brock on Thursday, with labs prior to that appointment. Please reschedule your follow-up appointment with Dr. Alexis Burrell for port reassessment for next week. TIME SPENT: Greater than 30 minutes were spent on direct patient care, as well as discharge planning and preparation.
--- NOTE | 2018-01-11 14:30 | ASMTLACE ---
LACE Length of stay for Answers: 4-6 days current admission Acuity / Level of Answers: Yes Care: Did the patient have an inpatient admission? Comorbidities - select Answers: Any tumor (including all that apply lymphoma or leukemia) # of Emergency department Answers: 1-2 visits in the last 6 months Score: 10 Date Signed: 01/11/2018 02:29 PM Electronically Signed By:Stella Sotelo RN
--- NOTE | 2018-01-11 14:31 | ASMTCMCOM ---
CM Note CM Note Notes: Medically cleared for dc to home independent. CM available should needs arise. Date Signed: 01/11/2018 02:31 PM Electronically Signed By:Stella Sotelo RN
[2018-01-11 15:57] VITALS: BP 130/80; PULSE 78; O2SAT 98
== END 2018-01-11 17:04 | disposition home or self-care (01) | DRG 809 ==
LOC: PREOBSVTOIN 15:58 → F1N 16:16
PROVIDERS: ADMIT Internal Medicine; ATTEND Internal Medicine
PROC: 30233N1 Transfusion of Nonautologous Red Blood Cells into Peripheral Vein, Percutaneous Approach (ICD-10-PCS; principal; 2018-01-08)
DX: D70.1 Agranulocytosis secondary to cancer chemotherapy (principal); R50.81 Fever presenting with conditions classified elsewhere; C91.00 Acute lymphoblastic leukemia not having achieved remission; A04.72 Enterocolitis due to Clostridium difficile, not specified as recurrent; D61.810 Antineoplastic chemotherapy induced pancytopenia; T45.1X5A Adverse effect of antineoplastic and immunosuppressive drugs, initial encounter; K60.2 Anal fissure, unspecified; E80.6 Other disorders of bilirubin metabolism; K62.89 Other specified diseases of anus and rectum; K12.31 Oral mucositis (ulcerative) due to antineoplastic therapy; F32.9 Major depressive disorder, single episode, unspecified; J45.909 Unspecified asthma, uncomplicated; Z80.3 Family history of malignant neoplasm of breast; Z80.0 Family history of malignant neoplasm of digestive organs
CPT/HCPCS: J0692; J1642; J2405; J3370; P9016; P9040; Q9967

== ENCOUNTER → 2018-01-20 | Outpatient (CLI) | payer OTHER | LOC: FIMAGING 10:23 | PROVIDERS: ATTEND Internal Medicine Hematology & Oncology | DX: C91.00 Acute lymphoblastic leukemia not having achieved remission (principal) | CPT/HCPCS: J9250 ==

== ENCOUNTER → 2018-03-17 | Outpatient (CLI) | payer OTHER | LOC: FIMAGING 09:26 | PROVIDERS: ATTEND Internal Medicine Hematology & Oncology | PROC: 3E0R305 Introduction of Other Antineoplastic into Spinal Canal, Percutaneous Approach (ICD-10-PCS; principal; 2018-03-17) | DX: C91.00 Acute lymphoblastic leukemia not having achieved remission (principal) | CPT/HCPCS: 85060-90; 88184-90; 88185-91; J9250 ==

== ENCOUNTER 2018-03-27 10:36 | Emergency (ER) | payer OTHER ==
--- NOTE | 2018-03-27 11:07 | EDPHY ---
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 The patient 1st noted a fever on . This resolved and ache again returned on Thursday. His temperature was 100.1 degrees. Today he woke up feeling lethargic. He had been intermittent chills. No fever today. He has had no cough or shortness of breath. No abdominal pain. No nausea or vomiting. No noted rash. No lesions in his mouth. Of note, the patient is currently taking oral chemotherapy. He IV chemotherapy on March 16 an intrathecal chemotherapy on March 17. REVIEW OF SYSTEMS: My complete review of systems is negative except as mentioned in the HPI. Past Medical/Surgical History: Includes ALL, asthma Smoking Status: Never smoked Physical Exam: Vitals noted GENERAL: Well-appearing, in no acute distress, alert. HEENT: Eyes normal to inspection, normal pharynx, no signs of dehydration. No lesions. NECK: No thyromegaly, no lymphadenopathy, supple. Normal RESPIRATORY: Clear to auscultation bilaterally, no rales, rhonchi or wheezing. CVS: Regular rate and rhythm, no rubs, murmurs, or gallops. Chest: Right anterior wall chest port. No erythema. ABDOMEN: Soft, nontender, nondistended, no organomegaly. Benign BACK: Normal to inspection, no CVA tenderness. SKIN: Normal color, no rash, warm, dry. No pallor. EXTREMITIES: No pedal edema, no calf tenderness, no Homans sign or cords, no joint swelling. NEURO/PSYCH: Alert and oriented x3, normal mood and affect, normal motor sensory exam. No obvious cranial nerve deficit. Constitutional: Initial Vital Signs Temperature (C) 36.9 C 03/27/18 10:44 Heart Rate 128 H 03/27/18 10:44 Respiratory Rate 16 03/27/18 10:44 Blood Pressure 105/80 03/27/18 10:44 O2 Sat (%) 94 03/27/18 10:44 O2 Delivery Mode Room Air Allergies/Adverse Reactions: No Known Allergies Allergy (Verified 10/07/17 17:54) Home Medications: Medication Instructions Recorded Escitalopram Oxalate [Lexapro] 10 mg PO DAILY 03/27/18 Herbals/Supplements -Info Only 1 ea PO DAILY 03/27/18 LORazepam [Ativan (*)] 1 mg PO Q4 PRN 03/27/18 Mercaptopurine 50 mg PO DAILY 03/27/18 Methotrexate Sodium [Trexall] 20 mg PO TU 03/27/18 Sulfamethox/Tmp 800/160 mg 1 tab PO BID 03/27/18 [Bactrim Ds] Medical Decision Making - Diagnostics Imaging Results: Imaging Impressions Chest X-Ray 03/27/18 11:02 Impression: 1. Suspect airways disease with no definite pneumonia identified. 2. See above report for additional findings. ED Course/Re-evaluation: In the emergency department I discussed possible etiologies with the patient. I answered all his questions. I discussed the case with Dr. Brock. He recommended laboratory studies and blood cultures. Patient's white count was low at 2.1. His absolute neutrophil count was 1.6. Patient's chemistry panel was unremarkable. UA showed positive white cells. I discussed these results with Dr. Brock. Prior to discharge the patient has vital signs recheck. His temperature had bumped to 39. Heart rate was 114. I again discussed this with Dr. Brock. He recommended treatment with Levaquin 750 mg IV. Cultures are pending. Patient will be admitted to the hospital service. I discussed the plan with the patient and family Repeat vital signs are 38.1, 116/73, 117, 16 I was informed by the patient and family that he did not want admission. The family spoke with Dr. Brock. He explained the reasoning for the recommendations and options. Patient still wants discharge. He understands the risks of being discharged and has capacity. He is given warnings prior to leaving. He completed an AMA. He will return with worsening symptoms. Differential Diagnosis: My differential includes but is not limited to bacteremia, sepsis, leukopenic fever, pneumonia, urinary tract infection, viral illness - Data Points Laboratory Results: Laboratory Results 03/27/18 11:05 03/27/18 11:05 03/27/18 03/27/18 03/27/18 11:50 11:05 11:05 WBC RBC Hgb Hct MCV MCH MCHC RDW Plt Count MPV Neut % (Auto) Lymph % (Auto) [place] % (Auto) Eos % (Auto) Baso % (Auto) Nucleat RBC Rel Count Absolute Neuts (auto) Absolute Lymphs (auto) Absolute Monos (auto) Absolute Eos (auto) Absolute Basos (auto) Absolute Nucleated RBC Immature Gran % Seg Neutrophils % Band Neutrophils % Lymphocytes % Monocytes % Eosinophils % Basophils % Metamyelocytes % Myelocytes % Promyelocytes % Blast Cells % Immature Gran # Absolute Seg Neuts Absolute Band Neuts Absolute Lymphocytes Absolute Monocytes Absolute Eosinophils Absolute Basophils Absolute Metamyelocyte Absolute Myelocytes Absolute Promyelocytes Absolute Plasma Cells Absolute Blast Cells Plasma Cells % Platelet Estimate Polychromasia Tear Drop Cells PT 14.0 SEC SEC (12.0-15.0) INR 1.06 (0.83-1.16) APTT 32.6 SEC SEC (23.0-38.0) VBG Lactic Acid Sodium 136 mEq/L mEq/L (135-145) Potassium 4.2 mEq/L mEq/L (3.3-5.0) Chloride 102 mEq/L mEq/L (97-110) Carbon Dioxide 21 mEq/l L mEq/l (22-31) Anion Gap 13 mEq/L mEq/L (8-16) BUN 13 mg/dL mg/dL (7-23) Creatinine 0.8 mg/dL mg/dL (0.7-1.3) Estimated GFR > 60 Glucose 100 mg/dL mg/dL (70-100) Calcium 9.2 mg/dL mg/dL (8.5-10.4) Total Bilirubin 0.7 mg/dL mg/dL (0.1-1.4) Conjugated Bilirubin 0.3 mg/dL mg/dL (0.0-0.5) Unconjugated Bilirubin 0.4 mg/dL mg/dL (0.0-1.1) AST 14 IU/L L IU/L (17-59) ALT 34 IU/L IU/L (21-72) Alkaline Phosphatase 81 IU/L IU/L (38-126) Total Protein 6.8 g/dL g/dL (6.3-8.2) Albumin 4.2 g/dL g/dL (3.5-5.0) Lipase 22 IU/L L IU/L (23-300) Urine Color YELLOW Urine Appearance CLEAR Urine pH 6.0 (5.0-7.5) Ur Specific [place] 1.020 (1.002-1.030) Urine Protein NEGATIVE (NEGATIVE) Urine Ketones NEGATIVE (NEGATIVE) Urine Blood NEGATIVE (NEGATIVE) Urine Nitrate NEGATIVE (NEGATIVE) Urine Bilirubin NEGATIVE (NEGATIVE) Urine Urobilinogen 4.0 EU H EU (0.2-1.0) Ur Leukocyte Esterase NEGATIVE (NEGATIVE) Urine RBC 1-3 /hpf /hpf (0-3) Urine WBC 5-10 /hpf H /hpf (0-3) Ur Epithelial Cells NONE SEEN /lpf /lpf (NONE-1+) Urine Bacteria TRACE /hpf H /hpf (NONE SEEN) Urine Mucus TRACE /lpf /lpf (NONE-1+) Urine Glucose NEGATIVE (NEGATIVE) 03/27/18 03/27/18 11:05 11:05 WBC 2.01 10^3/uL L 10^3/uL (3.80-9.50) RBC 4.13 10^6/uL L 10^6/uL (4.40-6.38) Hgb 13.0 g/dL L g/dL (13.7-17.5) Hct 39.4 % L % (40.0-51.0) MCV 95.4 fL fL (81.5-99.8) MCH 31.5 pg pg (27.9-34.1) MCHC 33.0 g/dL g/dL (32.4-36.7) RDW 15.1 % % (11.5-15.2) Plt Count 195 10^3/uL 10^3/uL (150-400) MPV 10.5 fL fL (8.7-11.7) Neut % (Auto) Not Reported Lymph % (Auto) Not Reported [place] % (Auto) Not Reported Eos % (Auto) Not Reported Baso % (Auto) Not Reported Nucleat RBC Rel Count Not Reported Absolute Neuts (auto) Not Reported Absolute Lymphs (auto) Not Reported Absolute Monos (auto) Not Reported Absolute Eos (auto) Not Reported Absolute Basos (auto) Not Reported Absolute Nucleated RBC Not Reported Immature Gran % Not Reported Seg Neutrophils % 67.7 % % Band Neutrophils % 8.1 % % Lymphocytes % 9.1 % % Monocytes % 11.1 % % Eosinophils % 3.0 % % Basophils % 0 % % Metamyelocytes % 0 % % Myelocytes % 1.0 % % Promyelocytes % 0 % % Blast Cells % 0 % % Immature Gran # Not Reported Absolute Seg Neuts 1.36 10^/uL L 10^/uL (1.70-6.50) Absolute Band Neuts 0.16 10^3/uL 10^3/uL (0.00-0.70) Absolute Lymphocytes 0.18 10^3/uL L 10^3/uL (1.00-3.00) Absolute Monocytes 0.22 10^3/uL L 10^3/uL (0.30-0.80) Absolute Eosinophils 0.06 10^3/uL 10^3/uL (0.03-0.40) Absolute Basophils 0.00 10^3/uL L 10^3/uL (0.02-0.10) Absolute Metamyelocyte 0.00 10^3/mL 10^3/mL (0.00-0.00) Absolute Myelocytes 0.02 10^3/mL H 10^3/mL (0.00-0.00) Absolute Promyelocytes 0.00 10^3/uL 10^3/uL (0.00-0.00) Absolute Plasma Cells 0.00 10^3/uL 10^3/uL (0.00-0.00) Absolute Blast Cells 0.00 10^3/uL 10^3/uL (0.00-0.00) Plasma Cells % 0 % % Platelet Estimate ADEQUATE (ADEQ) Polychromasia 1+ H Tear Drop Cells 1+ H PT INR APTT VBG Lactic Acid 1.8 mmol/L mmol/L (0.7-2.1) Sodium Potassium Chloride Carbon Dioxide Anion Gap BUN Creatinine Estimated GFR Glucose Calcium Total Bilirubin Conjugated Bilirubin Unconjugated Bilirubin AST ALT Alkaline Phosphatase Total Protein Albumin Lipase Urine Color Urine Appearance Urine pH Ur Specific [place] Urine Protein Urine Ketones Urine Blood Urine Nitrate Urine Bilirubin Urine Urobilinogen Ur Leukocyte Esterase Urine RBC Urine WBC Ur Epithelial Cells Urine Bacteria Urine Mucus Urine Glucose Medications Given: Levofloxacin/Dextrose (Levaquin 750 Mg (Premix)) 150 mls @ 100 mls/hr IV EDNOW ONE PRN Reason: Protocol Stop: 03/27/18 15:08 Last Admin: 03/27/18 13:46 Dose: 150 mls Discontinued Medications Acetaminophen (Tylenol) 1,000 mg PO EDNOW ONE Stop: 03/27/18 13:17 Last Admin: 03/27/18 13:16 Dose: 1,000 mg Departure - Departure Disposition: Home, Routine, Self-Care Clinical Impression: Fever Qualifiers: Fever type: unspecified Qualified Code(s): R50.9 - Fever, unspecified Leukemia Qualifiers: Leukemia type: unspecified Leukemia Active/Remission status: without remission Qualified Code(s): C95.90 - Leukemia, unspecified not having achieved remission Condition: Good
[2018-03-27 11:22] LABS: PLATELET COUNT 195 10^3/uL (150-400)
[2018-03-27 11:51] LABS: INR 1.06 (0.83-1.16)
[2018-03-27] MEDS ORDERED: ACETAMINOPHEN 500 MG TAB ONE (13:15)
[2018-03-27] MEDS ORDERED: ACETAMINOPHEN 500 MG TAB PO ONE (13:16)
[2018-03-27 14:42] VITALS: BP 102/58
[2018-03-27] MEDS ORDERED: ONDANSETRON 4 MG/2 ML VIAL IVP PRN (14:42)
[2018-03-27] MEDS ORDERED: ONDANSETRON DISINTEGRATING 4 MG TAB PO PRN (14:42)
[2018-03-27] MEDS ORDERED: ACETAMINOPHEN 325 MG TAB PO PRN (14:42)
[2018-03-28] MEDS ORDERED: ENOXAPARIN 40 MG/0.4 ML SYR SC SCH (09:00)
== END 2018-03-27 15:27 | disposition left against medical advice (07) ==
LOC: UNDOADMOB 13:40
DX: C95.90 Leukemia, unspecified not having achieved remission (principal); J45.909 Unspecified asthma, uncomplicated
CPT/HCPCS: 96365; J1642; J1956

== ENCOUNTER → 2018-04-13 | Outpatient (CLI) | payer OTHER ==
[2018-04-13 10:09] LABS: INR 1.01 (0.83-1.16); PROTIME(PATIENT) 13.5 SEC (12.0-15.0)
== END ==
LOC: FIMAGING 09:11
PROVIDERS: ATTEND Internal Medicine Hematology & Oncology
PROC: 3E0R305 Introduction of Other Antineoplastic into Spinal Canal, Percutaneous Approach (ICD-10-PCS; principal; 2018-04-13)
DX: Z51.11 Encounter for antineoplastic chemotherapy (principal); C85.89 Other specified types of non-Hodgkin lymphoma, extranodal and solid organ sites
CPT/HCPCS: 85060-90; 88184-90; 88185-91; J1642; J9250

== ENCOUNTER → 2018-08-27 | Outpatient (CLI) | payer OTHER ==
[~2018-08-27] MED LIST changes: -METHOTREXATE SODIUM IT ONE; +METHOTREXATE SODIUM/PF 15 MG in NS (SYRINGE) 3 ML IT ONE; -NS IT ONE
== END ==
LOC: FIMAGING 09:27
PROVIDERS: ATTEND Internal Medicine Hematology & Oncology
PROC: 009U3ZX Drainage of Spinal Canal, Percutaneous Approach, Diagnostic (ICD-10-PCS; principal; 2018-08-27)
DX: C85.90 Non-Hodgkin lymphoma, unspecified, unspecified site (principal)
CPT/HCPCS: 85060-90; 88184-90; 88185-91; J9250

== ENCOUNTER → 2018-09-28 | Outpatient (CLI) | payer OTHER ==
[~2018-09-28] MED LIST changes: +LIDO/EPI 1% **for epidural** 30 ML SDV ONE; +METHOTREXATE SODIUM IT SCH; -METHOTREXATE SODIUM/PF 15 MG in NS (SYRINGE) 3 ML IT ONE; +NS IT SCH
== END ==
LOC: FIMAGING 09:18
PROVIDERS: ATTEND Internal Medicine Hematology & Oncology
PROC: 3E0S305 Introduction of Other Antineoplastic into Epidural Space, Percutaneous Approach (ICD-10-PCS; principal; 2018-09-28)
DX: C85.90 Non-Hodgkin lymphoma, unspecified, unspecified site (principal)
CPT/HCPCS: 85060-90; 88184-90; 88185-91; J9250

== ENCOUNTER → 2018-11-24 | Outpatient (CLI) | payer OTHER ==
[~2018-11-24] MED LIST changes: -LIDO/EPI 1% **for epidural** 30 ML SDV ONE; +METHOTREXATE SODIUM IT ONE; -METHOTREXATE SODIUM IT SCH; +NS IT ONE; -NS IT SCH
== END ==
LOC: FIMAGING 08:49
PROVIDERS: ATTEND Internal Medicine Hematology & Oncology
DX: C91.00 Acute lymphoblastic leukemia not having achieved remission (principal)
CPT/HCPCS: J9250

== ENCOUNTER → 2019-02-23 | Outpatient (CLI) | payer OTHER | LOC: FIMAGING 09:25 | PROVIDERS: ATTEND Internal Medicine Hematology & Oncology | PROC: 009U3ZX Drainage of Spinal Canal, Percutaneous Approach, Diagnostic (ICD-10-PCS; principal; 2019-02-23) | DX: C91.00 Acute lymphoblastic leukemia not having achieved remission (principal) | CPT/HCPCS: J9250 ==